=== PATIENT | male | born 1960 | race Caucasian/White ===

== ENCOUNTER 2020-06-05 12:30 | Emergency (ER) | payer OTHER ==
[~2020-06-05] VITALS: Ht 182.9 cm; Wt 93.2 kg
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
[2020-06-05] MEDS ORDERED: rabies vaccine (PCEC)/PF 2.5 unit kit IMVAC ONE (13:55)
[2020-06-05 14:25] VITALS: BP 154/81
== END 2020-06-05 14:26 | disposition home or self-care (01) ==
LOC: EDBD 12:31 → ER 12:31
DX: S81.831A Puncture wound without foreign body, right lower leg, initial encounter (principal); Z20.3 Contact with and (suspected) exposure to rabies; Z88.7 Allergy status to serum and vaccine; W55.01XA Bitten by cat, initial encounter; Y93.89 Activity, other specified; Y92.89 Other specified places as the place of occurrence of the external cause; Y99.8 Other external cause status
CPT/HCPCS: 90471; 90675; 99283

== ENCOUNTER 2020-06-08 12:25 | Emergency (ER) | payer OTHER ==
[~2020-06-08] VITALS: Ht 182.9 cm; Wt 93.2 kg
[2020-06-08 12:30] VITALS: BP 128/65
[2020-06-08] MEDS ORDERED: rabies vaccine (PCEC)/PF 2.5 unit kit IMVAC ONE (13:15)
== END 2020-06-08 13:56 | disposition home or self-care (01) ==
LOC: ER 12:26
DX: Z23 Encounter for immunization (principal); Z88.7 Allergy status to serum and vaccine
CPT/HCPCS: 90471; 90675; 99281